=== PATIENT | female | born 1970 | race Caucasian/White ===

== ENCOUNTER 2018-05-15 16:36 | Outpatient (CLI) | payer BC ==
--- NOTE | 2018-05-15 17:44 | RAD ---
THREE VIEWS OF THE RIGHT SHOULDER: 05/15/18 COMPARISON: None. HISTORY: Constant dull pain, no history of injury. FINDINGS: there is mild degenerative change at the right AC joint with osteophyte formation and interspace narr owing. No widening of the coracoclavicular interspace. No displaced fracture or dislocation. IMPRESSION: Mild right AC joint degenerative change. No acute osseous abnormality. POS: [id number]
== END 2018-05-15 16:37 | disposition home or self-care (01) ==
LOC: SCSRAD 16:36
PROVIDERS: ATTEND Nurse Practitioner Family
DX: M25.511 Pain in right shoulder (principal); M19.011 Primary osteoarthritis, right shoulder